=== PATIENT | male | born 1995 | race Caucasian/White ===

== ENCOUNTER 2022-06-14 01:16 | Emergency (ER) | payer OTHER ==
[~2022-06-14] VITALS: Ht 182.9 cm; Wt 86.0 kg
[2022-06-14 01:19] VITALS: BP 148/102
== END 2022-06-14 02:32 | disposition left against medical advice (07) ==
LOC: ER 01:16 → EDBD 01:16 → ER 02:32
DX: F10.129 Alcohol abuse with intoxication, unspecified (principal); Y90.9 Presence of alcohol in blood, level not specified; R03.0 Elevated blood-pressure reading, without diagnosis of hypertension
CPT/HCPCS: 99283